=== PATIENT | male | born 1965 | race Caucasian/White ===

== ENCOUNTER 2020-10-13 09:39 | Emergency (ER) | payer MEDICARE, MEDICAID ==
[~2020-10-13] VITALS: Ht 172.7 cm; Wt 56.2 kg
[~2020-10-13 09:39] MED LIST: AMLO-302 PO; CALC0.25 PO; CARV3.1212 PO; ERGO500017 PO; LISI-167 PO; LISI-170 PO; NICO-587 TD; OXYC5TAB3 PO; POLY17PO5 PO
--- NOTE | 2020-10-13 10:59 | NUR ---
PT CAME IN CO OF WEAKNESS, VORA, [place]. PT GETS DIALYSIS 3X A WEEK, MWF. PT WAS TURNED AWAY AT TODAY AT THE [facility] CL[facility]IC FOR HAVING A TEMP OF 100.0
[2020-10-13 11:01] LABS: MEAN CORPUSCULAR HEMOGLOBIN 30.9 pg (27.5-34.5); MEAN CORPUSCULAR HGB CONC 34.3 g/dL (33.2-36.2); MEAN PLATELET VOLUME 8.6 fL (7.4-10.4); PLATELET COUNT 97 x10^3/uL (130-400); RED BLOOD COUNT 3.19 x10^6/uL (4.38-5.82); RED CELL DISTRIBUTION WIDTH 15.3 % (9.4-14.8)
[2020-10-13 11:06] VITALS: BP 158/87
[2020-10-13 11:09] LABS: ALANINE AMINOTRANSFERASE 21 U/L (12-78); ALBUMIN 3.2 g/dL (3.4-5.0); ANION GAP 10 mmol/L (5-15); CALCIUM 8.4 mg/dL (8.5-10.1); CHLORIDE 102 mmol/L (98-107); CREATININE 9.58 mg/dL (0.7-1.3)
[2020-10-13 11:12] LABS: ALKALINE PHOSPHATASE 69 U/L (45-117); BILIRUBIN,TOTAL 0.7 mg/dL (0.2-1.0); TOTAL PROTEIN 7.9 g/dL (6.4-8.2)
[2020-10-13 11:21] LABS: MICROSCOPIC AUTO
[2020-10-13 11:51] LABS: MD YES
[2020-10-13 11:53] LABS: BAND#(MANUAL) 0.26 x10^3/uL; BANDS%(MANUAL) 6 % (0-7); LYMPH#(MANUAL) 0.69 x10^3/uL (1-3.4); LYMPHS% (MANUAL) 16 % (22-44); MONOS#(MANUAL) 0.13 x10^3/uL (0.3-2.7); MONOS% (MANUAL) 3 % (2-9); REACTIVE LYMPHS # (MANUAL) 0.09 x10^3/uL (0-0); REACTIVE LYMPHS % (MANUAL) 2 % (0-0); SEG#(MANUAL) 3.14 x10^3/uL (1.8-6.8); SEGS% (MANUAL) 73 % (42-75)
[2020-10-13 11:54] LABS: <RBC MORPHOLOGY> NORMAL
[2020-10-13 11:55] LABS: <PLATELET ESTIMATE> DECREASED; <PLT MORPHOLOGY> NORMAL PLT MORPH
--- NOTE | 2020-10-13 13:20 | NUR ---
TASK RN: DC EDUCATION PROVIDED, PT DEMONSTRATES UNDERSTANDING. PT AMBULATED STEADILY TO DC WITH RN
== END 2020-10-13 13:22 | disposition home or self-care (01) ==
LOC: ED 09:53
DX: U07.1 COVID-19 (principal); I12.9 Hypertensive chronic kidney disease with stage 1 through stage 4 chronic kidney disease, or unspecified chronic kidney disease; N18.9 Chronic kidney disease, unspecified; R07.9 Chest pain, unspecified; F17.200 Nicotine dependence, unspecified, uncomplicated; Z99.2 Dependence on renal dialysis
CPT/HCPCS: 71045; 80053; 81001; 83605; 85025; 87635; 99284

== ENCOUNTER 2020-11-28 07:23 | Emergency (ER) | payer MEDICARE, MEDICAID ==
[~2020-11-28] VITALS: Ht 172.7 cm; Wt 59.0 kg
[~2020-11-28 07:23] MED LIST changes: -OXYC5TAB3 PO; +OXYC5TAB98 PO
[2020-11-28] MEDS ORDERED: SODIUM CHLORIDE FLUSH 10ML SYR IVF ONE (08:00)
[2020-11-28 08:22] LABS: BASOPHILS % (AUTO) 1 % (0-1); EOSINOPHILS % (AUTO) 1 % (1-7); LYMPHOCYTES % (AUTO) 20 % (22-44); MEAN CORPUSCULAR HEMOGLOBIN 33.1 pg (27.5-34.5); MEAN CORPUSCULAR HGB CONC 33.4 g/dL (33.2-36.2); MONOCYTES % (AUTO) 8 % (2-9); NEUTROPHILS % (AUTO) 71 % (42-75); PLATELET COUNT 115 x10^3/uL (130-400); RED BLOOD COUNT 2.07 x10^6/uL (4.38-5.82); RED CELL DISTRIBUTION WIDTH 17.6 % (9.4-14.8)
[2020-11-28 08:27] LABS: ALANINE AMINOTRANSFERASE 57 U/L (12-78); ALBUMIN 3.1 g/dL (3.4-5.0); ANION GAP 7 mmol/L (5-15); CALCIUM 7.9 mg/dL (8.5-10.1); CHLORIDE 100 mmol/L (98-107); CREATININE 5.36 mg/dL (0.7-1.3)
[2020-11-28 08:29] LABS: ALKALINE PHOSPHATASE 87 U/L (45-117); BILIRUBIN,TOTAL 0.4 mg/dL (0.2-1.0); TOTAL PROTEIN 6.8 g/dL (6.4-8.2)
--- NOTE | 2020-11-28 08:48 | NUR ---
PT DIALYZED YESTERDAY AND WAS INFORMED HGB 6.1 Black stool a few days ago (resolved). Gets iron via iv (shoudn't cause dark stool) Dizziness and sob with exertion Vss at rest Ecg ontained placed on monitoring manager Piv placed Blood consent obtained
[2020-11-28 09:07] LABS: ANISOCYTOSIS 1+; MD MORPH REVIEW ONLY
[2020-11-28 09:08] LABS: <PLATELET ESTIMATE> DECREASED; <PLT MORPHOLOGY> NORMAL PLT MORPH; OVALOCYTES 1+; POLYCHROMASIA 1+; TEAR DROPS 1+
--- NOTE | 2020-11-28 09:11 | NUR ---
REPORT TO SUNIL CUNHA
--- NOTE | 2020-11-28 09:15 | NUR ---
Report received from [facility].
--- NOTE | 2020-11-28 09:47 | NUR ---
1 unit PRBCs started.
[2020-11-28 09:48] VITALS: BP 153/81
[2020-11-28 10:02] VITALS: BP 157/86
[2020-11-28 10:18] VITALS: BP 160/82
[2020-11-28 10:34] VITALS: BP 163/87
[2020-11-28 11:00] VITALS: BP 161/90
--- NOTE | 2020-11-28 11:01 | NUR ---
Blood transfusion complete. No reaction noted. Vital signs stable throughout.
[2020-11-28 11:55] VITALS: BP 164/88
--- NOTE | 2020-11-28 11:58 | NUR ---
Discharge intructions reviewed.
== END 2020-11-28 12:03 | disposition home or self-care (01) ==
LOC: ED 08:14
DX: I13.0 Hypertensive heart and chronic kidney disease with heart failure and stage 1 through stage 4 chronic kidney disease, or unspecified chronic kidney disease (principal); N18.9 Chronic kidney disease, unspecified; D64.9 Anemia, unspecified; F17.210 Nicotine dependence, cigarettes, uncomplicated; R79.9 Abnormal finding of blood chemistry, unspecified
CPT/HCPCS: 36415; 36430; 80053; 83735; 85025; 86850; 86900; 86923; 93005; 99285; P9016